=== PATIENT | female | born 1990 | race Caucasian/White ===

== ENCOUNTER 2022-07-25 20:42 | Emergency (ER) | payer SELFPAY ==
[~2022-07-25] VITALS: Ht 162.5 cm; Wt 72.6 kg
== END 2022-07-26 00:14 | disposition home or self-care (01) ==
LOC: ED 20:42
DX: S96.912A Strain of unspecified muscle and tendon at ankle and foot level, left foot, initial encounter (principal); X50.1XXA Overexertion from prolonged static or awkward postures, initial encounter; Y93.89 Activity, other specified; Y92.89 Other specified places as the place of occurrence of the external cause; Y99.8 Other external cause status